=== PATIENT | male | born 1965 | race Caucasian/White ===

== ENCOUNTER 2020-08-16 07:35 | Day surgery (SDC) | payer OTHER ==
[~2020-08-16] VITALS: Ht 170.2 cm; Wt 99.8 kg
[2020-08-16] MEDS ORDERED: MIDAZOLAM 5 MG/5 ML VIAL ONE (08:57)
[2020-08-16] MEDS ORDERED: LIDOCAINE 2% 100 MG/5 ML UJET TP ONE (08:57)
[2020-08-16] MEDS ORDERED: fentaNYL citrate 0.05 MG/ML VIAL ONE (08:57)
[2020-08-16] MEDS ORDERED: fentaNYL citrate 0.05 MG/ML VIAL IVP ONE (13:20)
[2020-08-16] MEDS ORDERED: MIDAZOLAM 2 MG/2 ML VIAL IVP ONE (13:20)
== END 2020-08-16 09:45 | disposition home or self-care (01) ==
LOC: MDS 07:35 → MMU 07:36 → MDS 09:45
PROVIDERS: ATTEND Internal Medicine Gastroenterology
DX: Z12.11 Encounter for screening for malignant neoplasm of colon (principal); K63.5 Polyp of colon; I10 Essential (primary) hypertension; E78.5 Hyperlipidemia, unspecified; I25.10 Atherosclerotic heart disease of native coronary artery without angina pectoris; Z79.84 Long term (current) use of oral hypoglycemic drugs; Z79.82 Long term (current) use of aspirin; Z79.899 Other long term (current) drug therapy
CPT/HCPCS: 45380; 88305; J2250; J3010